=== PATIENT | female | born 1935 | race Caucasian/White ===

== ENCOUNTER 2016-07-25 19:17 | Inpatient (IN) | payer MEDICARE, OTHER ==
[~2016-07-25] VITALS: Ht 167.6 cm; Wt 56.4 kg
[~2016-07-25 19:17] MED LIST: TERB15CR19 TP
[2016-07-25] MEDS ORDERED: ZIPRASIDONE 20 MG INJ IM ONE ×2 (22:30→22:52)
[2016-07-25] MEDS ORDERED: MIDAZOLAM 1 MG/ML, 2ML IM ONE (22:30)
[2016-07-25 22:41] LABS: ASPARTATE AMINO TRANSFERASE 27 U/L (15-37); BLOOD UREA NITROGEN 25 mg/dL (7-18)
[2016-07-25 22:42] LABS: ACETAMINOPHEN < 2 mcg/mL (10-30)
[2016-07-25] MEDS ORDERED: MIDAZOLAM 1 MG/ML, 5ML ONE (22:52)
[2016-07-26] MEDS ORDERED: POLYETHYLENE GLYCOL 17 GM PACKET PO PRN (02:30)
[2016-07-26] MEDS ORDERED: DOCUSATE 100 MG CAPSULE PO PRN (02:30)
[2016-07-26] MEDS ORDERED: BISACODYL 10 MG SUPP PR PRN (02:30)
[2016-07-27 03:07] LABS: DAU SCREEN DISCLAIMER
[2016-07-27 10:42] VITALS: BP 118/59
[2016-07-27] MEDS ORDERED: LORazepam 1MG TABLET ONE (20:03)
[2016-07-27 20:18] VITALS: BP 148/63
[2016-07-27] MEDS: LORazepam 0.5MG TABLET PO PRN (20:54)
[2016-07-27] MEDS: QUETIAPINE 25MG TABLET PO SCH (20:54)
[2016-07-28 02:04] VITALS: BP 108/61
[2016-07-28 07:15] VITALS: BP 114/64
[2016-07-28 12:42] VITALS: BP 144/73
[2016-07-28] MEDS ORDERED: HALOPERIDOL 5 MG/ML ONE (14:25)
[2016-07-28] MEDS ORDERED: LORazepam 2 MG/ML, 1ML ONE (14:38)
[2016-07-28] MEDS ORDERED: LORazepam 2 MG/ML, 1ML IM PRN (14:38)
[2016-07-28] MEDS: HALOPERIDOL 1 MG TABLET PO PRN (15:02)
[2016-07-28 20:02] VITALS: BP 143/63
[2016-07-28] MEDS: QUETIAPINE 25MG TABLET PO SCH (21:39)
[2016-07-28] MEDS: LORazepam 0.5MG TABLET PO PRN (21:40)
[2016-07-29 01:29] VITALS: BP 125/81
[2016-07-29 07:20] VITALS: BP 129/66
[2016-07-29 13:20] VITALS: BP 125/72
[2016-07-29] MEDS ORDERED: LORazepam 2 MG/ML, 1ML IM PRN (14:30)
[2016-07-29 18:58] VITALS: BP 131/71
[2016-07-29] MEDS: LORazepam 0.5MG TABLET PO PRN (22:48)
[2016-07-29] MEDS: QUETIAPINE 25MG TABLET PO SCH (22:48)
[2016-07-30 01:18] VITALS: BP 110/63
[2016-07-30 07:30] VITALS: BP 116/70
[2016-07-30] MEDS ORDERED: CEFTRIAXONE PMX 1GM/50ML 50 ML IV SCH (12:30)
[2016-07-30 14:25] VITALS: BP 105/63
[2016-07-30 19:28] VITALS: BP 122/69
[2016-07-30] MEDS: QUETIAPINE 25MG TABLET PO SCH (20:41)
[2016-07-30] MEDS: CEFDINIR 300 MG CAPSULE PO SCH (20:41)
[2016-07-30] MEDS ORDERED: HALOPERIDOL 5 MG/ML ONE (23:03)
[2016-07-30] MEDS: HALOPERIDOL 1 MG TABLET PO PRN (23:06)
[2016-07-31 01:15] VITALS: BP 107/65
[2016-07-31 07:01] VITALS: BP 116/82
[2016-07-31 07:04] VITALS: BP 115/69
[2016-07-31] MEDS: CEFDINIR 300 MG CAPSULE PO SCH ×2 (09:00→19:57)
[2016-07-31 14:24] VITALS: BP 103/61
[2016-07-31] MEDS: QUETIAPINE 25MG TABLET PO SCH (19:57)
[2016-07-31 19:58] VITALS: BP 124/73
[2016-08-01 02:22] VITALS: BP 133/74
[2016-08-01 07:04] VITALS: BP 117/67
[2016-08-01] MEDS: CEFDINIR 300 MG CAPSULE PO SCH ×2 (09:00→19:40)
[2016-08-01 13:10] VITALS: BP 135/69
[2016-08-01] MEDS: HALOPERIDOL 1 MG TABLET PO PRN (13:29)
[2016-08-01 19:37] VITALS: BP 122/67
[2016-08-01] MEDS: QUETIAPINE 25MG TABLET PO SCH (19:40)
[2016-08-02 01:12] VITALS: BP 108/69
[2016-08-02 07:59] VITALS: BP 127/73
[2016-08-02] MEDS: HALOPERIDOL 1 MG TABLET PO PRN (08:05)
[2016-08-02] MEDS: LORazepam 0.5MG TABLET PO PRN (08:05)
[2016-08-02] MEDS: CEFDINIR 300 MG CAPSULE PO SCH ×2 (08:08→21:18)
[2016-08-02] MEDS ORDERED: RISPERIDONE 1 MG TABLET PO ONE (12:08)
[2016-08-02 13:20] VITALS: BP 115/74
[2016-08-02] MEDS: HALOPERIDOL 5 MG/ML IM PRN (14:50)
[2016-08-02] MEDS: LORazepam 2 MG/ML, 1ML IM PRN (17:14)
[2016-08-02 20:00] VITALS: BP 113/71
[2016-08-02] MEDS: RISPERIDONE 1 MG TABLET PO SCH (21:18)
[2016-08-03 01:00] VITALS: BP 110/65
[2016-08-03 07:07] VITALS: BP 106/65
[2016-08-03] MEDS: RISPERIDONE 1 MG TABLET PO SCH ×2 (08:33→20:10)
[2016-08-03] MEDS: CEFDINIR 300 MG CAPSULE PO SCH ×2 (08:34→20:10)
[2016-08-03 13:33] VITALS: BP 113/72
[2016-08-03] MEDS: HALOPERIDOL 1 MG TABLET PO PRN (16:53)
[2016-08-03 19:27] VITALS: BP 135/76
[2016-08-03] MEDS: LORazepam 2 MG/ML, 1ML IM PRN ×2 (20:16→20:17)
[2016-08-03] MEDS: HALOPERIDOL 5 MG/ML IM PRN (21:11)
[2016-08-04 03:24] VITALS: BP 124/68
[2016-08-04 06:59] VITALS: BP 144/76
[2016-08-04] MEDS: CEFDINIR 300 MG CAPSULE PO SCH ×2 (09:00→21:00)
[2016-08-04] MEDS: RISPERIDONE 1 MG TABLET PO SCH ×2 (10:39→21:16)
[2016-08-04 12:32] VITALS: BP 123/72
[2016-08-04] MEDS: HALOPERIDOL 1 MG TABLET PO PRN (15:06)
[2016-08-04 19:03] VITALS: BP 117/72
[2016-08-04] MEDS ORDERED: LORazepam 2 MG/ML, 1ML ONE (21:10)
[2016-08-05 00:59] VITALS: BP 131/76
[2016-08-05 06:45] VITALS: BP 113/68
[2016-08-05] MEDS: RISPERIDONE 1 MG TABLET PO SCH ×2 (09:00→19:57)
[2016-08-05] MEDS: CEFDINIR 300 MG CAPSULE PO SCH ×2 (09:00→21:00)
[2016-08-05 13:39] VITALS: BP 115/69
[2016-08-05 18:52] VITALS: BP 118/70
[2016-08-05] MEDS: LORazepam 2 MG/ML, 1ML IM PRN (20:30)
[2016-08-06 03:39] VITALS: BP 104/67
[2016-08-06] MEDS: CEFDINIR 300 MG CAPSULE PO SCH (09:00)
[2016-08-06] MEDS: RISPERIDONE 1 MG TABLET PO SCH ×2 (09:00→20:08)
[2016-08-06] MEDS: HALOPERIDOL 5 MG/ML IM PRN ×2 (11:02→20:37)
[2016-08-06 13:51] VITALS: BP 105/66
[2016-08-06 18:48] VITALS: BP 126/76
[2016-08-07] MEDS: RISPERIDONE 1 MG TABLET PO SCH ×2 (08:23→20:23)
[2016-08-07] MEDS: HALOPERIDOL 5 MG/ML IM PRN (11:35)
[2016-08-07] MEDS: LORazepam 2 MG/ML, 1ML IM PRN (13:39)
[2016-08-07 13:41] VITALS: BP 154/81
[2016-08-07 20:23] VITALS: BP 118/71
[2016-08-08 01:42] VITALS: BP 158/76
[2016-08-08 07:18] VITALS: BP 126/72
[2016-08-08] MEDS: RISPERIDONE 1 MG TABLET PO SCH ×2 (09:51→20:43)
[2016-08-08 13:22] VITALS: BP 163/68
[2016-08-08 20:44] VITALS: BP 128/73
[2016-08-09 01:57] VITALS: BP 151/80
[2016-08-09 07:11] VITALS: BP 136/74
[2016-08-09] MEDS: RISPERIDONE 1 MG TABLET PO SCH ×2 (08:31→21:00)
[2016-08-09 12:51] VITALS: BP 111/66
[2016-08-09 18:44] VITALS: BP 105/63
[2016-08-10 01:10] VITALS: BP 136/79
[2016-08-10 08:50] VITALS: BP 113/74
[2016-08-10] MEDS: RISPERIDONE 1 MG TABLET PO SCH ×2 (08:55→20:19)
[2016-08-10 14:06] VITALS: BP 113/70
[2016-08-10 19:29] VITALS: BP 118/66
[2016-08-11 01:31] VITALS: BP 103/56
[2016-08-11 08:10] VITALS: BP 116/63
[2016-08-11] MEDS: RISPERIDONE 1 MG TABLET PO SCH ×2 (09:00→22:20)
[2016-08-11] MEDS: HALOPERIDOL 5 MG/ML IM PRN ×2 (11:52→18:08)
[2016-08-11 13:16] VITALS: BP 123/70
[2016-08-11 15:29] VITALS: BP 124/73
[2016-08-11 18:58] VITALS: BP 124/70
[2016-08-12 02:00] VITALS: BP 147/74
[2016-08-12 07:10] VITALS: BP 130/76
[2016-08-12] MEDS: RISPERIDONE 1 MG TABLET PO SCH ×2 (08:46→20:02)
[2016-08-12 14:53] VITALS: BP 120/74
[2016-08-12 18:49] VITALS: BP 112/60
[2016-08-13 01:11] VITALS: BP 113/58
[2016-08-13 08:30] VITALS: BP 144/80
[2016-08-13] MEDS: RISPERIDONE 1 MG TABLET PO SCH ×2 (09:48→21:01)
[2016-08-13 13:35] VITALS: BP 116/72
[2016-08-13 20:56] VITALS: BP 128/62
[2016-08-14 02:00] VITALS: BP 122/69
[2016-08-14 07:23] VITALS: BP 134/76
[2016-08-14] MEDS: RISPERIDONE 1 MG TABLET PO SCH ×2 (08:55→20:15)
[2016-08-14 19:46] VITALS: BP 121/74
[2016-08-15 02:00] VITALS: BP 154/80
[2016-08-15 08:02] VITALS: BP 127/81
[2016-08-15] MEDS: RISPERIDONE 1 MG TABLET PO SCH ×2 (10:41→21:22)
[2016-08-15 12:45] VITALS: BP 107/70
[2016-08-15 19:50] VITALS: BP 119/79
[2016-08-16 01:39] VITALS: BP 126/63
[2016-08-16] MEDS: RISPERIDONE 1 MG TABLET PO SCH ×2 (10:46→22:08)
[2016-08-16 13:07] VITALS: BP 110/71
[2016-08-16 14:51] VITALS: BP 94/58
[2016-08-16 19:34] VITALS: BP 93/61
[2016-08-17 07:49] VITALS: BP 113/60
[2016-08-17] MEDS: RISPERIDONE 1 MG TABLET PO SCH ×2 (10:01→22:06)
[2016-08-17 13:25] VITALS: BP 129/66
[2016-08-17 20:29] VITALS: BP 129/71
[2016-08-18 01:27] VITALS: BP 121/69
[2016-08-18 05:52] VITALS: BP 146/80
[2016-08-18] MEDS: RISPERIDONE 1 MG TABLET PO SCH ×2 (07:59→20:28)
[2016-08-18 08:23] VITALS: BP 118/75
[2016-08-18 20:00] VITALS: BP 109/69
[2016-08-19] MEDS: RISPERIDONE 1 MG TABLET PO SCH ×2 (08:03→20:11)
[2016-08-19 08:12] VITALS: BP 118/69
[2016-08-19 19:58] VITALS: BP 120/63
[2016-08-20] MEDS: RISPERIDONE 1 MG TABLET PO SCH ×2 (08:41→20:29)
[2016-08-20 08:42] VITALS: BP 119/71
[2016-08-20 19:49] VITALS: BP 125/75
== END 2016-08-21 01:49 | DRG 885 ==
LOC: ED 20:08 → OBSVTOIN 07-26 01:37 → EDIP 07-26 01:37 → 4NOR 07-27 09:13 → 4EST 07-28 05:26 → 4WST 08-05 10:36 → 3E 08-18 05:44
PROVIDERS: ADMIT Internal Medicine; ATTEND Family Medicine
DX: F23 Brief psychotic disorder (principal); F03.91 Unspecified dementia, unspecified severity, with behavioral disturbance; T76.01XA Adult neglect or abandonment, suspected, initial encounter; T76.91XA Unspecified adult maltreatment, suspected, initial encounter; F31.60 Bipolar disorder, current episode mixed, unspecified; B35.3 Tinea pedis; E88.09 Other disorders of plasma-protein metabolism, not elsewhere classified; F22 Delusional disorders; I87.2 Venous insufficiency (chronic) (peripheral); R32 Unspecified urinary incontinence; Z59.0 Homelessness; Z78.1 Physical restraint status; Z83.3 Family history of diabetes mellitus; Z82.49 Family history of ischemic heart disease and other diseases of the circulatory system; Z82.5 Family history of asthma and other chronic lower respiratory diseases; Z91.14 Patient's other noncompliance with medication regimen; Z91.83 Wandering in diseases classified elsewhere; Z88.1 Allergy status to other antibiotic agents; Z88.8 Allergy status to other drugs, medicaments and biological substances; Z88.4 Allergy status to anesthetic agent; Z88.5 Allergy status to narcotic agent; Z88.2 Allergy status to sulfonamides; Z90.89 Acquired absence of other organs
CPT/HCPCS: 36415; 80053; 80164; 80307; 80329; 81001; 85025; 87086; J2250; J3486; G0378; G0480; J1630; J2060

== ENCOUNTER 2016-09-10 14:09 | Emergency (ER) | payer MEDICARE ==
[~2016-09-10] VITALS: Ht 152.4 cm; Wt 47.0 kg
[2016-09-10 14:58] LABS: DAU SCREEN DISCLAIMER
[2016-09-10 15:03] LABS: BLOOD UREA NITROGEN 18 mg/dL (7-18)
[2016-09-10 15:04] LABS: ACETAMINOPHEN < 2 mcg/mL (10-30)
[2016-09-10] MEDS ORDERED: CEFTRIAXONE PMX 1GM/50ML 50 ML IVPB ONE (15:30)
[2016-09-10] MEDS ORDERED: CEFTRIAXONE 250 MG ONE (16:00)
[2016-09-10] MEDS ORDERED: CEFTRIAXONE 1,000 MG IM ONE (16:00)
[2016-09-10] MEDS ORDERED: CEFTRIAXONE 1,000 MG ONE (16:04)
[2016-09-10 17:20] VITALS: BP 174/81
== END 2016-09-10 19:50 ==
LOC: ED 19:16
DX: N30.00 Acute cystitis without hematuria (principal); F23 Brief psychotic disorder
CPT/HCPCS: 36415; 70450; 80048; 80307; 80329; 81001; 82040; 83605; 84145; 85025; 87086; 96372; 99285; J0696; G0480

== ENCOUNTER 2016-12-05 08:20 | Emergency (ER) | payer MEDICARE ==
[~2016-12-05] VITALS: Ht 167.6 cm; Wt 54.5 kg
[2016-12-05] MEDS ORDERED: LIDOCAINE 1%-EPI 1:100K, 20ML SQ ONE (09:00)
[2016-12-05] MEDS ORDERED: L.E.T SOLUTION TP ONE (09:00)
[2016-12-05] MEDS ORDERED: MAGN400O7 PO (09:11)
[2016-12-05] MEDS ORDERED: GLUC1KIT PO (09:11)
[2016-12-05] MEDS ORDERED: QUET100T4 PO (09:11)
[2016-12-05] MEDS ORDERED: QUET50TA5 PO (09:11)
[2016-12-05] MEDS ORDERED: ASPI325T17 PO (09:11)
[2016-12-05] MEDS ORDERED: NALO0.4D2 IM (09:11)
[2016-12-05] MEDS ORDERED: DIPH50CA41 PO (09:11)
[2016-12-05] MEDS ORDERED: MIRT15TA PO (09:11)
[2016-12-05] MEDS ORDERED: EPIN0.3P3 IM (09:11)
[2016-12-05] MEDS ORDERED: MEMA5TAB PO (09:11)
[2016-12-05 11:13] VITALS: BP 115/69
== END 2016-12-05 11:20 ==
LOC: ED 10:02
DX: S01.01XA Laceration without foreign body of scalp, initial encounter (principal); F03.90 Unspecified dementia, unspecified severity, without behavioral disturbance, psychotic disturbance, mood disturbance, and anxiety; W01.0XXA Fall on same level from slipping, tripping and stumbling without subsequent striking against object, initial encounter; Y93.89 Activity, other specified; Y92.89 Other specified places as the place of occurrence of the external cause; Y99.8 Other external cause status; Z88.0 Allergy status to penicillin; Z88.6 Allergy status to analgesic agent; Z88.1 Allergy status to other antibiotic agents
CPT/HCPCS: 12032

== ENCOUNTER 2018-02-05 11:25 | Emergency (ER) | payer MEDICARE ==
[~2018-02-05] VITALS: Ht 167.6 cm; Wt 55.0 kg
[~2018-02-05 11:25] MED LIST changes: +ASPI325T17 PO; +DIPH50CA41 PO; +EPIN0.3P3 IM; +GLUC1KIT PO; +MAGN400O7 PO; +MEMA5TAB PO; +MIRT15TA PO; +NALO0.4D2 IM; +QUET100T4 PO; +QUET50TA5 PO
[2018-02-05 12:31] LABS: BASOPHILS # (AUTO) 0.03 x10^3/uL (0-0.1); BASOPHILS % (AUTO) 1 % (0-1); EOSINOPHILS # (AUTO) 0.08 x10^3/uL (0-0.4); EOSINOPHILS % (AUTO) 1 % (1-7); LYMPHOCYTES # (AUTO) 1.49 x10^3/uL (1-3.4); LYMPHOCYTES % (AUTO) 23 % (22-44); MD NO; MEAN CORPUSCULAR HEMOGLOBIN 29.2 pg (27.0-34.8); MEAN CORPUSCULAR HGB CONC 33.1 g/dL (32.4-35.8); MEAN CORPUSCULAR VOLUME 88.3 fL (80-100); MEAN PLATELET VOLUME 8.7 fL (7.4-10.4); MONOCYTES # (AUTO) 0.42 x10^3/uL (0.2-0.8); MONOCYTES % (AUTO) 6 % (2-9); NEUTROPHILS # (AUTO) 4.48 x10^3/uL (1.8-6.8); NEUTROPHILS % (AUTO) 69 % (42-75); PLATELET COUNT 262 x10^3/uL (130-400); RED BLOOD COUNT 4.87 x10^6/uL (3.82-5.3); RED CELL DISTRIBUTION WIDTH 13.8 % (9.6-15.2)
[2018-02-05 12:40] LABS: ALBUMIN 3.5 g/dL (3.4-5.0); ANION GAP 8 mmol/L (5-15); CALCIUM 9.4 mg/dL (8.5-10.1); CHLORIDE 111 mmol/L (98-107); CREATININE 1.23 mg/dL (0.55-1.02)
[2018-02-05 12:44] LABS: TROPONIN I < 0.015 ng/mL (0.000-0.045)
[2018-02-05 13:14] VITALS: BP 114/62
== END 2018-02-05 13:27 | disposition home or self-care (01) ==
LOC: ED 13:04
DX: R06.00 Dyspnea, unspecified (principal)
CPT/HCPCS: 36415; 71046; 80048; 82040; 84484; 85025; 93005; 99284

== ENCOUNTER 2020-07-10 19:40 | Emergency (ER) | payer MEDICARE ==
[~2020-07-10] VITALS: Ht 167.6 cm; Wt 60.0 kg
[~2020-07-10 19:40] MED LIST changes: +MIRT-37 PO; -MIRT15TA PO
--- NOTE | 2020-07-10 19:55 | NUR ---
Patient CLEMENTINE from a care facility c/o weakness and decreased appetite x3 days. Patient also c/o pain "all over" which is worse today. Patient has a hx of dementia; she is a layton of the [facility] who was contacted sangeeta CHOUDHURY and they advised they wanted patient to come get checked out. According to EMS, the facility was asked if patient has had urinary symptoms recently and they were unable to answer. Patient is in NAD but is agitated. Respirations even and unlabored.
[2020-07-10 20:30] LABS: BASOPHILS % (AUTO) 1 % (0-1); EOSINOPHILS % (AUTO) 1 % (1-7); LYMPHOCYTES % (AUTO) 21 % (22-44); MEAN CORPUSCULAR HEMOGLOBIN 29.6 pg (27.0-34.8); MEAN CORPUSCULAR HGB CONC 33.1 g/dL (32.4-35.8); MEAN PLATELET VOLUME 8.3 fL (7.4-10.4); MONOCYTES % (AUTO) 10 % (2-9); NEUTROPHILS % (AUTO) 66 % (42-75); PLATELET COUNT 447 x10^3/uL (130-400); RED BLOOD COUNT 4.48 x10^6/uL (3.82-5.3); RED CELL DISTRIBUTION WIDTH 14.6 % (9.6-15.2)
[2020-07-10 20:31] LABS: MD NO
[2020-07-10 20:40] LABS: ALANINE AMINOTRANSFERASE 22 U/L (12-78); ALBUMIN 3.5 g/dL (3.4-5.0); ANION GAP 6 mmol/L (5-15); CALCIUM 9.5 mg/dL (8.5-10.1); CHLORIDE 111 mmol/L (98-107); CREATININE 1.15 mg/dL (0.55-1.02)
[2020-07-10 20:42] LABS: ALKALINE PHOSPHATASE 93 U/L (45-117); BILIRUBIN,TOTAL 0.5 mg/dL (0.2-1.0); TOTAL PROTEIN 7.9 g/dL (6.4-8.2)
--- NOTE | 2020-07-10 20:47 | NUR ---
Patient refusing to attempt to urinate and refusing straight cath.
--- NOTE | 2020-07-10 21:07 | NUR ---
Asked patient to place bedpan underneath her for urine; patient refused.
--- NOTE | 2020-07-10 22:09 | NUR ---
Spoke with Dyana, who is the [facility] public guardian station air traffic control specialist sangeeta. She states patient has been stating "I want to " and refusing her meds. She states her plan of care by her doctors and social science analyst was to be sent to [facility] ER to be medically cleared then sent to [facility]. They have been in contact with [facility] social science analyst Molly. Advised that there is a process to get a patient admitted to [facility]. Awaiting reeval by ERP for current plan of care.
[2020-07-10] MEDS ORDERED: MAGN400T9 PO (22:47)
[2020-07-10] MEDS ORDERED: CHOL10003 PO (22:47)
[2020-07-10] MEDS ORDERED: ASPI-963 PO (22:47)
[2020-07-10] MEDS ORDERED: HYDR12.517 PO (22:47)
[2020-07-10] MEDS ORDERED: OLAN5TAB7 PO (22:47)
[2020-07-10] MEDS ORDERED: DOCU100C33 PO (22:47)
[2020-07-10] MEDS ORDERED: KETO5DRO77 EACHEYE (22:47)
[2020-07-10] MEDS ORDERED: LORA-445 PO (22:47)
[2020-07-10] MEDS ORDERED: ATOR10TA9 PO (22:47)
[2020-07-10] MEDS ORDERED: CARB200T4 PO (22:47)
[2020-07-10] MEDS ORDERED: MELA5TAB14 PO (22:47)
--- NOTE | 2020-07-10 22:47 | NUR ---
Spoke with Mackenzie from [facility]. She is to look into patient's chart for notes regarding situation.
[2020-07-10 22:54] LABS: SALICYLATE LEVEL < 1.7 mg/dL (2.8-20.0)
--- NOTE | 2020-07-10 23:00 | NUR ---
Patient sleeping in gurney. Respirations even and unlabored.
--- NOTE | 2020-07-10 23:35 | NUR ---
TRISTA Mann from [facility] came down to eval patient. She will speak with her pressing department supervisor and skilled nursing case manager to determine if they can accept patient.
--- NOTE | 2020-07-11 | NUR ---
Report given to TRISTA Knutson. Patient care transferred.
--- NOTE | 2020-07-11 00:07 | NUR ---
Patient sleeping in rney. Respirations even and unlabored. Awaiting return call from TRISTA Mann from [facility] regarding patient placement.
--- NOTE | 2020-07-11 00:53 | NUR ---
PATIENT ACCEPTED BY PENDING COVID TEST
--- NOTE | 2020-07-11 01:02 | NUR ---
SWABBED PATIENT FOR C19. SENT TO LAB. PATIENT IN BED, RAILS UP
[2020-07-11 02:14] VITALS: BP 148/78
== END 2020-07-11 03:10 | disposition other institution (70) ==
LOC: ED 20:08
DX: R45.851 Suicidal ideations (principal); N28.9 Disorder of kidney and ureter, unspecified; R53.1 Weakness; F03.90 Unspecified dementia, unspecified severity, without behavioral disturbance, psychotic disturbance, mood disturbance, and anxiety; Z20.822 Contact with and (suspected) exposure to COVID-19; R94.31 Abnormal electrocardiogram [ECG] [EKG]; R07.89 Other chest pain; R10.9 Unspecified abdominal pain
CPT/HCPCS: 36415; 71045; 80053; 80299; 80320; 80329; 84443; 85025; 87426; 93005; 99285; G0480

== ENCOUNTER 2020-07-11 02:12 | Inpatient (IN) | payer MEDICARE, MEDICAID ==
[~2020-07-11] VITALS: Ht 167.6 cm; Wt 55.0 kg
[~2020-07-11 02:12] MED LIST changes: +ASPI-963 PO; +ATOR10TA9 PO; +CARB200T4 PO; +CHOL10003 PO; +DOCU100C33 PO; +HYDR12.517 PO; +KETO5DRO77 EACHEYE; +LORA-445 PO; +MAGN400T9 PO; +MELA5TAB14 PO; +OLAN5TAB7 PO
[2020-07-11] MEDS ORDERED: DOCUSATE 100 MG CAPSULE PO PRN (02:30)
[2020-07-11] MEDS ORDERED: ONDANSETRON ODT 4 MG PO PRN (02:30)
[2020-07-11] MEDS ORDERED: POLYETHYLENE GLYCOL 17 GM PACKET PO PRN (02:30)
[2020-07-11] MEDS ORDERED: ACETAMINOPHEN 325 MG TABLET PO PRN (02:30)
[2020-07-11] MEDS ORDERED: BISACODYL 10 MG SUPP PR PRN (02:30)
[2020-07-11] MEDS: CARBAMAZEPINE XR 200 MG TABLET PO SCH ×2 (09:30→20:25)
[2020-07-11] MEDS: HYDROCHLOROTHIAZIDE 12.5 MG CAPSULE PO SCH (09:30)
[2020-07-11] MEDS: DOCUSATE 100 MG CAPSULE PO SCH ×2 (09:30→20:25)
[2020-07-11] MEDS ORDERED: CARBAMAZEPINE XR 200 MG TABLET ONE (09:44)
[2020-07-11] MEDS ORDERED: RISPERIDONE 1 MG TAB.RAPDIS ONE (09:45)
[2020-07-11] MEDS ORDERED: ASPIRIN 81 MG TABLET EC ONE (09:45)
[2020-07-11] MEDS ORDERED: MAGNESIUM OXIDE 400 MG TABLET ONE (09:45)
[2020-07-11] MEDS ORDERED: HYDROCHLOROTHIAZIDE 12.5 MG CAPSULE ONE (09:50)
[2020-07-11] MEDS: ASPIRIN 81 MG TABLET EC PO SCH (09:57)
[2020-07-11] MEDS: MAGNESIUM OXIDE 400 MG TABLET PO SCH (09:58)
[2020-07-11] MEDS: RISPERIDONE 1 MG TAB.RAPDIS PO SCH (09:58)
[2020-07-11] MEDS: KETOROLAC OPHTH 0.5%, 5ML EACHEYE SCH ×2 (10:00→20:24)
[2020-07-11 19:45] VITALS: BP_SYST 145; BP_SYST 165; BP_DIAS 83; BP_DIAS 89
[2020-07-11] MEDS: MELATONIN 5 MG TABLET PO SCH (20:25)
[2020-07-11] MEDS: ATORVASTATIN 20 MG TABLET PO SCH (20:25)
[2020-07-12] MEDS: ASPIRIN 81 MG TABLET EC PO SCH ×2 (06:00→08:26)
[2020-07-12 08:09] LABS: CALCIUM 9.8 mg/dL (8.5-10.1); CHLORIDE 115 mmol/L (98-107)
[2020-07-12 08:12] LABS: CHOL/HDL RATIO 4.7; CHOLESTEROL, TOTAL 224 mg/dL (140-239); HDL CHOL % 21 % (28-40); HDL CHOLESTEROL (DIRECT) 48 mg/dL (40-60); LDL CHOLESTEROL,CALCULATED 141 mg/dL (54-169); LDL/HDL RATIO 2.9 (0.5-3.0); TRIGLYCERIDES 173 mg/dL (50-200); VLDL CHOLESTEROL 35 mg/dL (0-25)
[2020-07-12 08:19] LABS: ANION GAP 5 mmol/L (5-15)
[2020-07-12] MEDS: RISPERIDONE 1 MG TAB.RAPDIS PO SCH (08:22)
[2020-07-12] MEDS: HYDROCHLOROTHIAZIDE 12.5 MG CAPSULE PO SCH (08:22)
[2020-07-12] MEDS: CARBAMAZEPINE XR 200 MG TABLET PO SCH ×2 (08:23→21:41)
[2020-07-12] MEDS: DOCUSATE 100 MG CAPSULE PO SCH ×2 (08:23→21:40)
[2020-07-12] MEDS: MAGNESIUM OXIDE 400 MG TABLET PO SCH (08:23)
[2020-07-12] MEDS: KETOROLAC OPHTH 0.5%, 5ML EACHEYE SCH ×2 (09:00→21:40)
[2020-07-12 19:44] VITALS: BP 128/81
[2020-07-12] MEDS: MELATONIN 5 MG TABLET PO SCH (21:41)
[2020-07-12] MEDS: ATORVASTATIN 20 MG TABLET PO SCH (21:41)
[2020-07-12] MEDS ORDERED: D5%-0.45% NACL 1,000 ML IV SCH (23:00)
[2020-07-13] MEDS: ASPIRIN 81 MG TABLET EC PO SCH (06:00)
[2020-07-13] MEDS: CARBAMAZEPINE XR 200 MG TABLET PO SCH (08:26)
[2020-07-13] MEDS: KETOROLAC OPHTH 0.5%, 5ML EACHEYE SCH (08:26)
[2020-07-13] MEDS: HYDROCHLOROTHIAZIDE 12.5 MG CAPSULE PO SCH (08:26)
[2020-07-13] MEDS: RISPERIDONE 1 MG TAB.RAPDIS PO SCH (08:26)
[2020-07-13] MEDS: MAGNESIUM OXIDE 400 MG TABLET PO SCH (08:26)
[2020-07-13] MEDS: DOCUSATE 100 MG CAPSULE PO SCH (08:26)
== END 2020-07-13 10:28 | disposition home or self-care (01) | DRG 884 ==
LOC: 3E 02:43
PROVIDERS: ADMIT Psychiatry & Neurology Psychosomatic Medicine; ATTEND Psychiatry & Neurology Psychosomatic Medicine
DX: F03.91 Unspecified dementia, unspecified severity, with behavioral disturbance (principal); Z82.49 Family history of ischemic heart disease and other diseases of the circulatory system; Z83.3 Family history of diabetes mellitus
CPT/HCPCS: 36415; 71045; 80048; 80061

== ENCOUNTER 2020-07-16 18:18 | Emergency (ER) | payer MEDICARE, MEDICAID ==
[~2020-07-16 18:18] MED LIST changes: +METF500T PO
--- NOTE | 2020-07-16 18:26 | NUR ---
INSURANCE UNDERWRITING ASSISTANT: PT HERE WITH [facility] JUST DISCHARGED FROM [facility] TO [facility], CAME BACK DUE TO PATIENT, "NOT WANTING TO GO TO [facility]". CALLED WINNIE MONTAÑO FOR ASSISTANCE.
== END 2020-07-16 18:39 | disposition left against medical advice (07) ==
LOC: ED 18:19
DX: R06.02 Shortness of breath (principal); Z53.21 Procedure and treatment not carried out due to patient leaving prior to being seen by health care provider